=== PATIENT | male | born 1955 | race Caucasian/White ===

== ENCOUNTER 2020-02-22 11:40 | Inpatient (IN) ==
[2020-02-22 12:50] LABS: ABS Basophils 0.1 10^3/ul (0-0.2); ABS Eosinophils 0.1 10^3/ul (0-0.6); ABS Lymphocytes 1.2 10^3/ul (1.0-4.8); ABS Monocytes 0.5 10^3/ul (0-0.8); Eosinophil % 1.4 %; Hematocrit 25 % (42-52); Mean Corpuscular HGB Conc 36 g/dL (31-36); Mean Corpuscular Hemoglobin 32 pg (27-31); Mean Corpuscular Volume 89 fL (80-94); Mean Platelet Volume 7.1 fL (7.4-10.4); Platelet Count 291 10^3/uL (150-450); Red Blood Count 2.84 10^6 /uL (4.18-5.48); Red Cell Distribution Width 12 % (10-15); White Blood Count 9.1 10^3/uL (3.5-10.8)
[2020-02-22 12:56] LABS: Activated Partial Thrombo Time 29.2 seconds (26.0-38.0)
[2020-02-22 12:57] LABS: Albumin 4.5 g/dL (3.2-5.2); Albumin/Globulin Ratio 1.5 (1-3); BUN/Creatinine Ratio 10.7 (8-20); C Reactive Protein 3.77 mg/L (<8.01); Calcium 9.4 mg/dL (8.6-10.3); EGFR African American 6.8 (>60); EGFR Non-African American 5.6 (>60); Potassium 4.2 mmol/L (3.5-5.0); Total Bilirubin 0.3 mg/dL (0.2-1.0); Total Protein 7.5 g/dL (6.4-8.9)
[2020-02-22 13:05] LABS: INR 1.02 (0.82-1.09)
[2020-02-22] MEDS ORDERED: NS 0.9% 1000 ml BAG 1,000 ML IV ONE (13:11)
[2020-02-22 13:16] LABS: Urine Color Red
[2020-02-22 13:17] LABS: Urine Appearance Cloudy; Urine Specific Gravity 1.013 (1.010-1.030)
[2020-02-22 13:20] LABS: Urine Bacteria Absent (Absent); Urine Red Blood Cell 3+(>10/hpf) (Absent); Urine White Blood Cell 1+(6-10/hpf) (Absent)
[2020-02-22 16:50] LABS: Hematocrit 25 % (42-52); Hemoglobin 8.6 g/dL (14.0-18.0)
[2020-02-22 17:55] LABS: Urine Appearance Turbid; Urine Specific Gravity 1.009 (1.010-1.030)
[2020-02-22 17:56] LABS: Urine Color Red
[2020-02-22 17:58] LABS: Urine Bacteria Absent (Absent); Urine Red Blood Cell 3+(>10/hpf) (Absent); Urine White Blood Cell 1+(6-10/hpf) (Absent)
[2020-02-22] MEDS: Lactated Ringers 1000 ml BAG 1,000 ML IV SCH (20:25)
[2020-02-22 22:35] LABS: Hematocrit 25 % (42-52); Hemoglobin 9.2 g/dL (14.0-18.0)
[2020-02-23] MEDS: Lactated Ringers 1000 ml BAG 1,000 ML IV SCH ×4 (04:35→22:16)
[2020-02-23 06:46] LABS: Hematocrit 24 % (42-52); Hemoglobin 8.3 g/dL (14.0-18.0)
[2020-02-23 06:47] LABS: ABS Basophils 0.1 10^3/ul (0-0.2); ABS Eosinophils 0.3 10^3/ul (0-0.6); ABS Lymphocytes 1.6 10^3/ul (1.0-4.8); ABS Monocytes 0.7 10^3/ul (0-0.8); Hematocrit 23 % (42-52); Hemoglobin 8.3 g/dL (14.0-18.0); Lymphocyte % 16.8 %; Mean Corpuscular HGB Conc 35 g/dL (31-36); Mean Corpuscular Hemoglobin 32 pg (27-31); Mean Corpuscular Volume 89 fL (80-94); Mean Platelet Volume 7.3 fL (7.4-10.4); Platelet Count 253 10^3/uL (150-450); Red Blood Count 2.63 10^6 /uL (4.18-5.48); Red Cell Distribution Width 12 % (10-15); White Blood Count 9.8 10^3/uL (3.5-10.8)
[2020-02-23 07:05] LABS: BUN/Creatinine Ratio 11.1 (8-20); Calcium 8.7 mg/dL (8.6-10.3); EGFR African American 7.2 (>60); Potassium 3.8 mmol/L (3.5-5.0)
[2020-02-23 16:03] LABS: BUN/Creatinine Ratio 11.1 (8-20); Calcium 8.3 mg/dL (8.6-10.3); EGFR African American 7.6 (>60); EGFR Non-African American 6.3 (>60); Magnesium 1.9 mg/dL (1.9-2.7); Phosphorus 5.9 mg/dL (2.5-5.0); Potassium 4.3 mmol/L (3.5-5.0)
[2020-02-23 16:44] LABS: % Iron Saturation 19 % (15-55); Iron 54 ug/dL (50-212); Total Iron Binding Capacity 290 mcg/dL (250-450); Transferrin 207 mg/dL (203-362)
[2020-02-23 17:05] LABS: Ferritin 159.8 ng/mL (24-336)
[2020-02-23 17:09] LABS: Folate 12.41 ng/mL (>3.99)
[2020-02-24] MEDS: Lactated Ringers 1000 ml BAG 1,000 ML IV SCH ×2 (03:27→08:59)
[2020-02-24 11:43] LABS: ABS Basophils 0.1 10^3/ul (0-0.2); ABS Eosinophils 0.4 10^3/ul (0-0.6); ABS Lymphocytes 1.4 10^3/ul (1.0-4.8); ABS Monocytes 0.5 10^3/ul (0-0.8); Eosinophil % 5.6 %; Hematocrit 22 % (42-52); Hemoglobin 7.7 g/dL (14.0-18.0); Lymphocyte % 18.6 %; Mean Corpuscular HGB Conc 36 g/dL (31-36); Mean Corpuscular Hemoglobin 32 pg (27-31); Mean Corpuscular Volume 89 fL (80-94); Platelet Count 239 10^3/uL (150-450); Red Cell Distribution Width 12 % (10-15); White Blood Count 7.5 10^3/uL (3.5-10.8)
[2020-02-24 11:57] LABS: BUN/Creatinine Ratio 10.8 (8-20); Calcium 8.3 mg/dL (8.6-10.3); EGFR African American 9.1 (>60); EGFR Non-African American 7.5 (>60); Potassium 3.9 mmol/L (3.5-5.0)
[2020-02-24] MEDS ORDERED: Lactated Ringers 1000 ml BAG 1,000 ML IV SCH (12:00)
[2020-02-24] MEDS ORDERED: Lidocaine 2% JELLY 6 ML TOPICAL PRN (12:49)
[2020-02-25] MEDS: Lactated Ringers 1000 ml BAG 1,000 ML IV SCH ×3 (04:22→17:48)
[2020-02-25 06:24] LABS: ABS Basophils 0.1 10^3/ul (0-0.2); ABS Eosinophils 0.4 10^3/ul (0-0.6); ABS Lymphocytes 1.5 10^3/ul (1.0-4.8); ABS Monocytes 0.5 10^3/ul (0-0.8); ABS Nucleated RBC 0.1 10^3/ul; Eosinophil % 5.6 %; Hematocrit 23 % (42-52); Hemoglobin 8.1 g/dL (14.0-18.0); Mean Corpuscular HGB Conc 35 g/dL (31-36); Mean Corpuscular Hemoglobin 31 pg (27-31); Mean Corpuscular Volume 88 fL (80-94); Mean Platelet Volume 6.9 fL (7.4-10.4); Nucleated Red Blood Cells % 0.8; Platelet Count 240 10^3/uL (150-450); Red Blood Count 2.67 10^6 /uL (4.18-5.48); Red Cell Distribution Width 13 % (10-15); White Blood Count 7.3 10^3/uL (3.5-10.8)
[2020-02-25 06:39] LABS: BUN/Creatinine Ratio 11.5 (8-20); EGFR African American 10.2 (>60); EGFR Non-African American 8.4 (>60); Potassium 3.9 mmol/L (3.5-5.0)
[2020-02-26] MEDS: Lactated Ringers 1000 ml BAG 1,000 ML IV SCH ×4 (02:10→21:55)
[2020-02-26 05:50] LABS: ABS Basophils 0.1 10^3/ul (0-0.2); ABS Eosinophils 0.4 10^3/ul (0-0.6); ABS Lymphocytes 1.5 10^3/ul (1.0-4.8); ABS Monocytes 0.6 10^3/ul (0-0.8); Eosinophil % 6.1 %; Hematocrit 23 % (42-52); Hemoglobin 7.9 g/dL (14.0-18.0); Lymphocyte % 21.1 %; Mean Corpuscular HGB Conc 34 g/dL (31-36); Mean Corpuscular Hemoglobin 30 pg (27-31); Mean Corpuscular Volume 88 fL (80-94); Mean Platelet Volume 7.1 fL (7.4-10.4); Platelet Count 242 10^3/uL (150-450); Red Cell Distribution Width 13 % (10-15); White Blood Count 7.3 10^3/uL (3.5-10.8)
[2020-02-26 06:05] LABS: Calcium 7.7 mg/dL (8.6-10.3); EGFR African American 10.7 (>60); EGFR Non-African American 8.8 (>60); Potassium 3.8 mmol/L (3.5-5.0)
[2020-02-26] MEDS ORDERED: CALCIUM GLUCONATE 1GM/50ML NS 1 GM/50 ML BAG IV ONE (09:24)
[2020-02-26] MEDS ORDERED: DARBEPOETIN ALFA ALBUMEN FREE SUBCUT ONE (12:20)
[2020-02-27] MEDS: Lactated Ringers 1000 ml BAG 1,000 ML IV SCH (08:04)
[2020-02-27 09:51] LABS: ABS Basophils 0.1 10^3/ul (0-0.2); ABS Eosinophils 0.4 10^3/ul (0-0.6); ABS Lymphocytes 1.2 10^3/ul (1.0-4.8); ABS Monocytes 0.4 10^3/ul (0-0.8); Eosinophil % 5.3 %; Hematocrit 24 % (42-52); Hemoglobin 8.2 g/dL (14.0-18.0); Lymphocyte % 18.7 %; Mean Corpuscular HGB Conc 34 g/dL (31-36); Mean Corpuscular Hemoglobin 30 pg (27-31); Mean Corpuscular Volume 88 fL (80-94); Mean Platelet Volume 6.9 fL (7.4-10.4); Platelet Count 262 10^3/uL (150-450); Red Blood Count 2.76 10^6 /uL (4.18-5.48); Red Cell Distribution Width 13 % (10-15); White Blood Count 6.7 10^3/uL (3.5-10.8)
[2020-02-27 10:14] LABS: BUN/Creatinine Ratio 11.4 (8-20); Calcium 8.4 mg/dL (8.6-10.3); EGFR African American 11.3 (>60); EGFR Non-African American 9.4 (>60); Potassium 4.3 mmol/L (3.5-5.0)
[2020-02-27 12:06] VITALS: BP 140/67
== END 2020-02-27 15:45 | disposition home or self-care (01) | DRG 469 ==
LOC: SSU 11:40 → ED 11:40 → SSU 17:45
PROVIDERS: ADMIT Internal Medicine; ATTEND Internal Medicine